=== PATIENT | male | born 1945 | race Caucasian/White ===

== ENCOUNTER 2017-03-27 13:13 | Emergency (ER) | payer MEDICARE, OTHER ==
[~2017-03-27] VITALS: Ht 177.8 cm; Wt 88.0 kg
[2017-03-27 13:39] LABS: HEMATOCRIT 41.5 % (39.0-50.0); IMMATURE GRANULOCYTES 0.3 % (0.0-1.0); MEAN CORPUSCULAR HGB 30.7 pG CALC (26.0-32.0); MEAN CORPUSCULAR HGB CONC 33.7 g/L CALC (32.0-36.0); NEUT# 9.34 thou/uL (1.82-7.42); RED BLOOD COUNT 4.56 mill/uL (4.70-6.10); RED CELL DISTRI WIDTH 12.9 % (11.5-15.5)
[2017-03-27] MEDS ORDERED: LISINOPRIL10 MG PO (13:44)
[2017-03-27] MEDS ORDERED: LEVOTHYROXIN100 MCG PO (13:45)
[2017-03-27] MEDS ORDERED: ZYRTEC10 MG PO (13:45)
[2017-03-27] MEDS ORDERED: XARELTO20 MG PO (13:45)
[2017-03-27 13:52] LABS: ALBUMIN 4.3 g/dL (3.2-5.0); ALKALINE PHOSPHATASE 67 u/l (38-126); ANION GAP 16 (6-22 (CALC)); BILIRUBIN, TOTAL 0.9 mg/dL (0.0-1.4); BUN 19 mg/dL (8-23); BUN/CREATININE RATIO 12 (12-20 (CALC)); CALCIUM 9.5 mg/dL (8.4-10.2); CARBON DIOXIDE 25 mmol/l (22-30); CHLORIDE 102 mmol/l (95-108); CREATININE 1.5 mg/dL (0.7-1.3); GFR 46 ML/MIN (>=60 (CALC)); GFR FOR AFR.AMER. 56 ML/MIN (>=60 (CALC)); GLUCOSE 105 mg/dL (82-115); POTASSIUM 4.2 mmol/l (3.5-5.1); SGOT/AST 29 u/l (19-48); SGPT/ALT 37 u/l (11-66); SODIUM 138 mmol/l (137-146); TOTAL PROTEIN 7.7 g/dL (6.3-8.2)
[2017-03-27 14:04] LABS: MYOGLOBIN 168 ng/mL (0 - 121)
[2017-03-27 14:45] VITALS: BP 130/69
== END 2017-03-27 14:54 | disposition home or self-care (01) ==
LOC: ED 13:13
PROVIDERS: Emergency Medicine
DX: T67.5XXA Heat exhaustion, unspecified, initial encounter (principal); R55 Syncope and collapse; R53.1 Weakness; R42 Dizziness and giddiness; H53.8 Other visual disturbances; X30.XXXA Exposure to excessive natural heat, initial encounter; Y93.55 Activity, bike riding; Y92.410 Unspecified street and highway as the place of occurrence of the external cause